=== PATIENT | female | born 2000 | race Caucasian/White ===

== ENCOUNTER 2019-12-14 20:57 | Emergency (ER) | payer MEDICAID, OTHER ==
[~2019-12-14] VITALS: Ht 173 cm; Wt 63.6 kg
[2019-12-14] MEDS ORDERED: ONDANSETRON 4 MG/2 ML (SDV) Z0FRAN IVP ONE (21:00)
[2019-12-14] MEDS ORDERED: LACTATED RINGERS 1,000 ML IV SCH (21:00)
--- NOTE | 2019-12-14 21:05 | ED Neurological Problem ---
General Chief Complaint: Neurological Problems Stated Complaint: SEIZURE Source: patient Exam Limitations: no limitations History of Present Illness Date Seen by Provider: December 14, 2019 Time Seen by Provider: 21:03 Initial Comments to ER for EMS from home with reports of seizure like activity. During one of these episodes EMS was able to give commands and she was able to follow these by squeezing paramedics hands with both of her hands despite generalized myoclonic clonus. No fever no chills. she is 4 days late on her menstrual cycle, has been nauseous for about 3 or 4 days. No history of seizures and is otherwise healthy. She was not incontinent and she has not bitten her tongue. Apparently she's had about 5 or 6 of these episodes today at home. Been under an increased amount of stress lately. Timing/Duration: 24 hours Severity: moderate Allergies and Home Medications Allergies Coded Allergies: No Known Drug Allergies (Unverified , 12/14/19) Home Medications No Active Prescriptions or Reported Meds Patient Home Medication List Home Medication List Reviewed: Yes Review of Systems Review of Systems Constitutional: see HPI Eyes: No Symptoms Reported Ears, Nose, Mouth, Throat: no symptoms reported Respiratory: no symptoms reported Cardiovascular: no symptoms reported Gastrointestinal: nausea, vomiting Genitourinary: no symptoms reported Musculoskeletal: no symptoms reported Skin: no symptoms reported Psychiatric/Neurological: See HPI Endocrine: No Symptoms Reported Hematologic/Lymphatic: No Symptoms Reported Physical Exam Vital Signs Vital Signs - First Documented 12/14/19 20:57 Temp 36.8 Pulse 67 Resp 16 B/P (MAP) 117/90 (99) Pulse Ox 98 O2 Delivery Room Air Capillary Refill : Height, Weight, BMI Height: '" Weight: lbs. oz. kg; BMI Method: General Appearance: WD/WN, no apparent distress HEENT: PERRL/EOMI, normal ENT inspection, TMs normal Neck: non-tender, full range of motion Respiratory: no respiratory distress, no accessory muscle use Cardiovascular: regular rate, rhythm, no murmur Gastrointestinal: normal bowel sounds, non tender, soft Extremities: normal range of motion, non-tender Neurologic/Psychiatric: alert, normal mood/affect, oriented x 3 Crainal Nerves: normal hearing, normal speech, PERRL Skin: normal color, warm/dry Progress/Results/Core Measures Results/Orders Lab Results Laboratory Tests Test 12/14/19 21:00 12/14/19 21:15 Range/Units White Blood Count 9.1 4.3-11.0 10^3/uL Red Blood Count 4.81 4.35-5.85 10^6/uL Hemoglobin 13.8 11.5-16.0 G/DL Hematocrit 39 35-52 % Mean Corpuscular Volume 80 80-99 FL Mean Corpuscular Hemoglobin 29 25-34 PG Mean Corpuscular Hemoglobin Concent 36 32-36 G/DL Red Cell Distribution Width 12.4 10.0-14.5 % Platelet Count 215 130-400 10^3/uL Mean Platelet Volume 12.1 H 7.4-10.4 FL Neutrophils (%) (Auto) 70 42-75 % Lymphocytes (%) (Auto) 20 12-44 % Monocytes (%) (Auto) 10 0-12 % Eosinophils (%) (Auto) 1 0-10 % Basophils (%) (Auto) 0 0-10 % Neutrophils # (Auto) 6.4 1.8-7.8 X 10^3 Lymphocytes # (Auto) 1.8 1.0-4.0 X 10^3 Monocytes # (Auto) 0.9 0.0-1.0 X 10^3 Eosinophils # (Auto) 0.1 0.0-0.3 10^3/uL Basophils # (Auto) 0.0 0.0-0.1 10^3/uL Sodium Level 138 135-145 MMOL/L Potassium Level 3.7 3.6-5.0 MMOL/L Chloride Level 105 98-107 MMOL/L Carbon Dioxide Level 16 L 21-32 MMOL/L Anion Gap 17 H 5-14 MMOL/L Blood Urea Nitrogen 15 7-18 MG/DL Creatinine 0.87 0.60-1.30 MG/DL Estimat Glomerular Filtration Rate > 60 BUN/Creatinine Ratio 17 Glucose Level 112 H 70-105 MG/DL Calcium Level 9.8 8.5-10.1 MG/DL Corrected Calcium 8.5-10.1 MG/DL Total Bilirubin 1.0 0.1-1.0 MG/DL Aspartate Amino Transf (AST/SGOT) 25 5-34 U/L Alanine Aminotransferase (ALT/SGPT) 14 0-55 U/L Alkaline Phosphatase 74 40-136 U/L Myoglobin 46.9 10.0-92.0 NG/ML Total Protein 8.0 6.4-8.2 GM/DL Albumin 4.7 H 3.2-4.5 GM/DL Serum Test, Qualitative NEGATIVE NEGATIVE Urine Color YELLOW Urine Clarity CLOUDY Urine pH 6.0 5-9 Urine Specific [place] 1.025 H 1.016-1.022 Urine Protein 2+ H NEGATIVE Urine Glucose (UA) NEGATIVE NEGATIVE Urine Ketones 1+ H NEGATIVE Urine Nitrite NEGATIVE NEGATIVE Urine Bilirubin 1+ H NEGATIVE Urine Urobilinogen 2.0 < = 1.0 MG/DL Urine Leukocyte Esterase 3+ H NEGATIVE Urine RBC (Auto) NEGATIVE NEGATIVE Urine RBC NONE /HPF Urine WBC 5-10 H /HPF Urine Squamous Epithelial Cells 2-5 /HPF Urine Crystals NONE /LPF Urine Bacteria MODERATE H /HPF Urine Casts NONE /LPF Urine Mucus SMALL H /LPF Urine Culture Indicated YES Urine Opiates Screen NEGATIVE NEGATIVE Urine Oxycodone Screen NEGATIVE NEGATIVE Urine Methadone Screen NEGATIVE NEGATIVE Urine Propoxyphene Screen NEGATIVE NEGATIVE Urine Barbiturates Screen NEGATIVE NEGATIVE Ur Tricyclic Antidepressants Screen NEGATIVE NEGATIVE Urine Phencyclidine Screen NEGATIVE NEGATIVE Urine Amphetamines Screen NEGATIVE NEGATIVE Urine Methamphetamines Screen NEGATIVE NEGATIVE Urine Benzodiazepines Screen NEGATIVE NEGATIVE Urine Cocaine Screen NEGATIVE NEGATIVE Urine Cannabinoids Screen POSITIVE H NEGATIVE My Orders Orders - JOSEPH CASTRO APRN Cbc With Automated Diff (12/14/19 20:59) Comprehensive Metabolic Panel (12/14/19 20:59) Hcg,Qualitative Serum (12/14/19 20:59) Ua Culture If Indicated (12/14/19 20:59) Myoglobin Serum (12/14/19 20:59) Ed Iv/Invasive Line Start (12/14/19 20:59) Lactated Ringers (Lr 1000 Ml Iv Solution (12/14/19 21:00) Ondansetron Injection (Zofran Injectio (12/14/19 21:00) Drug Screen Stat (Urine) (12/14/19 20:59) Ct Head Wo (12/14/19 20:59) Lorazepam Injection (Ativan Injection) (12/14/19 21:30) Urine Culture (12/14/19 21:15) Rx-Lorazepam (Rx-Ativan) (12/14/19 22:03) Rx-Ondansetron Po (Rx-Zofran Po) (12/14/19 22:03) Ceftriaxone For Iv Use (Rocephin For I (12/14/19 22:15) Medications Given in ED Current Medications Medications Dose Ordered Sig/Laureano Route Start Time Stop Time Status Last Admin Dose Admin Lorazepam 0.5 mg ONCE PRN IVP 12/14/19 21:30 12/14/19 21:28 0.5 MG Ondansetron HCl 8 mg ONCE ONCE IVP 12/14/19 21:00 12/14/19 21:01 DC 12/14/19 21:03 8 MG Vital Signs/I&O 12/14/19 20:57 Temp 36.8 Pulse 67 Resp 16 B/P (MAP) 117/90 (99) Pulse Ox 98 O2 Delivery Room Air Departure Impression Primary Impression: Convulsions Qualified Codes: R56.9 - Unspecified convulsions Additional Impressions: Nausea & vomiting Urinary tract infection Disposition: HOME, SELF-CARE Condition: Stable Departure-Patient Inst. Decision time for Depature: 22:07 Patient Instructions: Nausea and Vomiting, Adult (DC), Stress, Urinary Tract Infection, Adult (DC) Add. Discharge Instructions: 1. Use the lorazepam and agree 6-8 hours as needed for stress and anxiety. Take the antibiotics as directed. Use the nausea medication as needed. Follow-up with your doctor next week for recheck. Your test was negative All discharge instructions reviewed with patient and/or family. Voiced understanding. Scripts Cefuroxime Axetil (Cefuroxime) 250 Mg Tablet 250 MG PO BID, #10 TAB Prov: JOSEPH CASTRO APRN 12/14/19 JOSEPH CASTRO APRN December 14, 2019 21:05
[2019-12-14 21:08] LABS: BASOPHILS % (AUTO) 0 % (0-10); EOSINOPHILS # (AUTO) 0.1 10^3/uL (0.0-0.3); EOSINOPHILS % (AUTO) 1 % (0-10); HEMATOCRIT 39 % (35-52); HEMOGLOBIN 13.8 G/DL (11.5-16.0); LYMPHOCYTES # (AUTO) 1.8 X 10^3 (1.0-4.0); LYMPHOCYTES % (AUTO) 20 % (12-44); MEAN CORPUSCULAR HEMOGLOBIN 29 PG (25-34); MEAN CORPUSCULAR HGB CONC 36 G/DL (32-36); MEAN CORPUSCULAR VOLUME 80 FL (80-99); MEAN PLATELET VOLUME 12.1 FL (7.4-10.4); MONOCYTES # (AUTO) 0.9 X 10^3 (0.0-1.0); MONOCYTES % (AUTO) 10 % (0-12); NEUTROPHILS # (AUTO) 6.4 X 10^3 (1.8-7.8); NEUTROPHILS % (AUTO) 70 % (42-75); PLATELET COUNT 215 10^3/uL (130-400); RED CELL DISTRIBUTION WIDTH 12.4 % (10.0-14.5); WHITE BLOOD COUNT 9.1 10^3/uL (4.3-11.0)
--- OUTSIDE RECORDS SUMMARY | 2019-12-14 21:08 | XMS REPORT | Continuity of Care Document ---
Author Organization Unknown Address Unknown Phone Unavailable Allergies Active Description Code Type Severity Reaction Onset Reported/Identified Relationship to Patient Clinical Status Yes Penicillins Penicillins Drug Allergy Unknown HIVES 08/28/2018 Medications There is no data. Problems Date Dx Coded Attending Type Code Diagnosis Diagnosed By 04/08/2015 GRACE LEACH 110.5 DERMATOPHYTOSIS OF THE BODY 04/08/2015 GRACE LEACH 307.81 TENSION HEADACHE 04/08/2015 GRACE LEACH 922.1 CONTUSION OF CHEST WALL 10/10/2015 PASCUAL MARROQUIN R10.9 Unspecified abdominal pain 10/10/2015 PASCUAL MARROQUIN R11.0 Nausea 10/10/2015 PASCUAL MARROQUIN R10.9 Unspecified abdominal pain 10/10/2015 PASCUAL MARROQUIN R53.83 Other fatigue 04/11/2016 MARIA GUADALUPE ELENA O26.892 Other specified related conditions, second trimester 04/13/2016 GRACE LEACH Z32.01 Encounter for test, result positive 04/14/2016 GRACE LEACH Z34.02 Encounter for supervision of normal first , second trimester 04/14/2016 GRACE LEACH Z36 Encounter for screening of mother 04/16/2016 GRACE LEACH O23.592 Infection of other part of genital tract in , second trimester 04/16/2016 GRACE LEACH Z3A.15 15 weeks gestation of 04/16/2016 GRACE LEACH N76.0 Acute vaginitis 04/16/2016 GRACE LEACH Z34.92 Encounter for supervision of normal , unspecified, second trimester 05/06/2016 GRACE LEACH B96.89 Other specified bacterial agents as the cause of diseases classified elsewhere 05/06/2016 GRACE LEACH J32.9 Chronic sinusitis, unspecified 05/06/2016 GRACE LEACH J40 Bronchitis, not specified as acute or chronic 05/06/2016 GRACE LEACH Z33.1 state, incidental 05/15/2016 VIJAY MOTT O26.892 Other specified related conditions, second trimester 05/15/2016 VIJAY MOTT R10.9 Unspecified abdominal pain 05/15/2016 VIJAY MOTT W19.XXXA Unspecified fall, initial encounter 05/15/2016 VIJAY MOTT Z3A.19 19 weeks gestation of 05/25/2016 GRACE LEACH Z34.02 Encounter for supervision of normal first , second trimester 05/25/2016 GRACE LEACH Z3A.20 20 weeks gestation of 08/15/2017 W 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, bilateral 08/15/2017 W 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, bilateral 08/15/2017 W R51 Headache 08/15/2017 W 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, bilateral 08/15/2017 W R51 Headache 08/23/2017 W 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, bilateral 08/23/2017 W R51 Headache 08/23/2017 W 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, bilateral 08/23/2017 W R51 Headache 08/23/2017 W 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, bilateral 08/23/2017 W R51 Headache 08/23/2017 W 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, bilateral 08/23/2017 W R51 Headache 08/23/2017 W 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, bilateral 08/23/2017 W R51 Headache 09/02/2017 W 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, bilateral 09/02/2017 W R51 Headache 09/02/2017 W 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, bilateral 09/02/2017 W R51 Headache 09/02/2017 W 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, bilateral 09/02/2017 W R51 Headache 09/05/2017 W 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, bilateral 09/05/2017 W R51 Headache 09/05/2017 W 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, bilateral 09/05/2017 W R51 Headache 09/05/2017 W 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, bilateral 09/05/2017 W R51 Headache 10/10/2018 MARY HENRY F17.20 0 Nicotine dependence, unspecified, uncomplicated 10/10/2018 MARY HENRY Mariam P N39.0 Urinary tract infection, site not specified 10/10/2018 MARY HENRY Mariam A R50.9 Fever, unspecified 12/27/2018 W 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, bilateral 12/28/2018 W 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, bilateral 03/16/2019 SANJAY ROJAS F N91 .2 Amenorrhea, unspecified 06/20/2019 MANDEEP ENG S63.501A Unspecified sprain of right wrist, initial encounter 06/20/2019 MANDEEP ENG W17.89XA Other fall from one level to another, initial encounter 06/20/2019 MANDEEP ENG Y92.[address] in unspecified non-institutional (private) residence as the place of occurrence of the external cause Procedures Code Description [place] [address] EYE EXAM, NEW PATIENT 08/15/2017 73553 REFR ACTION 08/15/2017 V2020 Visi on svcs frames purchases 08/15/2017 V2100 Lens spher single plano 4.00 08/15/2017 V2782 Lens , 1.54-1.65 p/1.60-1.79g 08/15/2017 VNOPP No P rotection Plan 08/15/2017 21728 EYE EXAM T TREATMENT 12/26/2018 87637 REFR ACTION 12/26/2018 V2020 Visi on svcs frames purchases 12/26/2018 V2100 Lens spher single plano 4.00 12/26/2018 V2782 Lens , 1.54-1.65 p/1.60-1.79g 12/26/2018 Results Test Result Range URINALYSIS, ROUTINE - 08/28/18 00:00 UA LEUKOCYTE ESTERASE DIPSTICK 2+ NEGATIVE UA NITRITE DIPSTICK NEGATIVE NEGATIVE UA PROTEIN DIPSTICK NEGATIVE NEGATIVE UA GLUCOSE DIPSTICK NEGATIVE NEGATIVE UA KETONE DIPSTICK NEGATIVE NEGATIVE UA UROBILINOGEN DIPSTICK NORMAL IVELISSE L UA BILIRUBIN DIPSTICK NEGATIVE NEGATIVE UA BLOOD DIPSTICK NEGATIVE NEGATIVE UA SPECIFIC GRAVITY 1.021 1.015-1.02 5 UR PH 7.0 5.0-7.0 UA MICROSCOPIC - 08/28/18 00:00 UA BACTERIA 4+ NEGATIVE UA EPITHELIAL CELLS 3+ epi/hpf 0 - 1+ UA RBC 0-3 rbc/hpf 0 - 3 UA VOLUME FOR EXAM 12.0 mL (12mL STD) UA WBC 10-20 wbc/hpf 0 - 5 URINE CULTURE - 08/28/18 00:00 Microbiology UR TEST - 08/28/18 19:44 UR TEST NEGATIVE NEGATIVE 10 MINUTE STREP ID - 10/10/18 18:09 10 MINUTE STREP ID LAB 10 MIN STREP NEGATIVE NORMAL = NEGATIVE INFLUENZA RAPID [facility] - 10/10/18 18:09 INFLUENZA A & B PCR, [facility] LAB INFLUENZA A NOT DETEC NORMAL: NOT DETEC SHELLY INFLUENZA B NOT DETEC NORMAL: NOT DETEC SHELLY [facility] - 10/10/18 18:16 U NEGATIVE URINALYSIS - 10/10/18 18:16 URINALYSIS LAB Color YELLOW Character CLEAR GLUCOSE NEGATIVE Bilirubin NEGATIVE Ketones NEGATIVE Sp [place] 1.017 Ph 6.0 Protein NEGATIVE Urobilinogen NEGATIVE Nitrite NEGATIVE Blood NEGATIVE Leukocytes 2+ Microscopic See Below Bacteria RARE WBC/ 6-10 RBC/ 0-2 Squa Epi Cell 3-5 Mucous RARE Culture To Follow CHLAMYDIA/GC URINE OR PROBETEC - 9 18:16 Chlamydia trachomatis,JEFF Positive Nega tive Neisseria gonorrhoeae,JEFF Negative Nega tive Radiology Report [place] [facility] [place]28/19 19 20:35:00 PATIENT NAME: BOBBY PARDO UNIT NO: [id number] EXAMS: CPT CODE: [id number] XR CHEST AP/PA ONLY [id number] TIME OF STUDY: 08/28/2018 8:05 PM REASON FOR EXAM: RIB PAIN COMPARISON: None. FINDINGS: Single frontal view of the chest was obtained. Lung volume is normal. No pulmonary mass or consolidation is present. No pleural effusion or pneumothorax. The cardiomediastinal silhouette and the pulmonary vascularity are within normal limits. No acute osseous abnormality. IMPRESSION: 1. No acute cardiopulmonary process. I have personally reviewed these images and confirmed or corrected the resident physician's interpretation. at 2028 RESIDENT: STEVEN FLORES MD Reported and signed by: CARLA MURILLO MD CC: TECHNOLOGIST: KIRAN NICHOLAS; NISSA MOTA TRANSCRIBED DATE/Time: 08/28/20182028 BY: [email or web address] EXAM COMPLETE DATE/TIME: [id number] D/TM:08/28/2018 (2034) [facility] NAME: BOBBY PARDO [address] HP: [phone] AGE: 18 S:F [place] [id number] : 2000 LOC: [facility] PHYS: Gumaro Pascual Antoni URIEL PHONE #: [phone] EXAM DATE: 08/28/2018 STATUS: REG ER FAX #: [phone] A#: [id number] U#: [id number] PAGE 1 Signed Report *Final Page* Encounters ACCT No. Visit Date/Time Discharge Status Pt. Type Provider Facility Loc./Unit Complaint [id number] 10/10/2018 17:47:00 10/10/2018 19:17 :00 DIS Emergency MARY HENRY L [id number] 06/19/2019 23:24:00 06/20/2019 00:55 :00 DIS Emergency MANDEEP ENG [facility] ED [id number] 03/16/2019 15:45:00 03/16/2019 19:45 :00 DIS Outpatient SANJAY ROJAS [id number] 03/16/2019 14:45:00 03/16/2019 18:45 :00 DIS Outpatient SANJAY ROJAS [facility] [place] [id number] 05/25/2016 09:30:00 05/25/2016 13:30 :00 DIS RB GRACE LEACH [facility] CL [id number] 05/21/2016 09:03:00 05/21/2016 13:03 :00 DIS OP GRACE LEACH [facility] OT [id number] 05/15/2016 15:25:00 05/15/2016 15:58 :00 DIS ED VIJAY MOTT [facility] ED [id number] 05/06/2016 14:30:00 05/06/2016 18:30 :00 DIS GRACE THAPA [facility] CL [id number] 04/16/2016 15:29:00 04/16/2016 19:29 :00 DIS OP GRACE LEACH [facility] OT [id number] 04/16/2016 14:45:00 04/16/2016 18:45 :00 DIS RB GRACE LEACH [facility] CL [id number] 04/14/2016 08:00:00 04/14/2016 12:00 :00 DIS OP GRACE LEACH [id number] 04/13/2016 16:00:00 04/13/2016 20:00 :00 DIS GRACE THAPA [facility] CL [id number] 04/11/2016 18:06:00 04/11/2016 [facility]00 :[id number]/10[facility]2015 10:11:00 10/10/2015 14:11 :[address] [facility] OT [id number] 10/10/2015 10:00:00 10/10/2015 14:00 :00 [id number] 04/08/2015 15:45:00 04/08/2015 19:45 :00 DIS GRACE THAPA [facility] CL [id number] 08/28/2018 18:58:00 21:51:00 DIS Emergency Triny [facility] [id number] 12/26/2018 14:20:00 Document Registration [id number] 12/26/2018 00:00:00 Document Registration [id number] 08/15/2017 09:45:00 Document Registration [id number] 08/15/2017 00:00:00 Document Registration [id number] 10/10/2018 17:47:00 Document Registration
[2019-12-14 21:16] LABS: ALBUMIN 4.7 GM/DL (3.2-4.5); CHLORIDE 105 MMOL/L (98-107)
[2019-12-14 21:17] LABS: POTASSIUM 3.7 MMOL/L (3.6-5.0); SODIUM 138 MMOL/L (135-145)
[2019-12-14 21:18] LABS: CALCIUM 9.8 MG/DL (8.5-10.1)
[2019-12-14 21:19] LABS: GLUCOSE 112 MG/DL (70-105)
[2019-12-14 21:20] LABS: CLARITY,URINE CLOUDY; COLOR,URINE YELLOW; GLUCOSE, URINE (UA) NEGATIVE (NEGATIVE); KETONES,URINE 1+ (NEGATIVE); LEUKOCYTE ESTERASE ,URINE 3+ (NEGATIVE); NITRITE,URINE NEGATIVE (NEGATIVE); PROTEIN,URINE 2+ (NEGATIVE)
[2019-12-14 21:20] LABS: CARBON DIOXIDE 16 MMOL/L (21-32)
[2019-12-14 21:22] LABS: ALKALINE PHOSPHATASE 74 U/L (40-136); CREATININE SERUM 0.87 MG/DL (0.60-1.30); GFR ESTIMATED > 60
[2019-12-14 21:24] LABS: BUN/CREATININE RATIO 17
[2019-12-14 21:25] LABS: ALANINE AMINOTRANSFERASE 14 U/L (0-55)
[2019-12-14 21:28] LABS: BILIRUBIN,URINE 1+ (NEGATIVE)
[2019-12-14 21:30] LABS: BACTERIA,URINE MODERATE /HPF
[2019-12-14] MEDS ORDERED: LORazepam INJ 2 MG/ML (ATIVAN) VIAL IVP PRN (21:30)
[2019-12-14 21:31] LABS: AMPHETAMINE SCREEN, URINE NEGATIVE (NEGATIVE); BARBITURATE SCREEN URINE NEGATIVE (NEGATIVE); BENZODIAZEPINES SCREEN URINE NEGATIVE (NEGATIVE); CANNABINOID SCREEN, URINE POSITIVE (NEGATIVE); COCAINE SCREEN URINE NEGATIVE (NEGATIVE); METHAMPHETAMINE SCREEN URINE S NEGATIVE (NEGATIVE); OPIATE SCREEN URINE NEGATIVE (NEGATIVE); TRICYCLIC ANTIDEPRESSANTS SCRE NEGATIVE (NEGATIVE)
[2019-12-14 21:32] LABS: METHADONE STAT NEGATIVE (NEGATIVE); OXYCODONE STAT NEGATIVE (NEGATIVE); PROPOXYPHENE STAT NEGATIVE (NEGATIVE)
--- NOTE | 2019-12-14 21:58 | Diagnostic Imaging Report ---
PROCEDURE: CT head without contrast. TECHNIQUE: Multiple contiguous axial images were obtained through the brain without the use of intravenous contrast. Auto Exposure Controls were utilized during the CT exam to meet ALARA standards for radiation dose reduction. INDICATION: Seizure-like activity. FINDINGS: There is no hemorrhage. Likely prominent Virchow-Dean space in the right basal ganglia is noted as a presumed chronic finding. No mass or mass effect. No evidence for elevated intracranial pressures. There is no sulcal effacement. The cortical alexis-white matter differentiation is maintained. The ventricles are within the upper limits of normal for caliber. There is no periventricular edema. IMPRESSION: No hemorrhage or acute appearing abnormality. Dictated by: Dictated on workstation # [id number]
[2019-12-14] MEDS ORDERED: RX-LORAZEPAM (ATIVAN) 0.5 MG TAB PPK#4 PO STA (22:03)
[2019-12-14] MEDS ORDERED: RX-ONDANSETRON 4 MG ODT (ZOFRAN) PPK #4 PO STA (22:03)
[2019-12-14] MEDS ORDERED: CEFU250T80 PO (22:11)
[2019-12-14] MEDS ORDERED: cefTRIAXone FOR IV USE 1,000 MG in WATER (STERILE) FOR INJECTION 10 ML IV ONE (22:15)
[2019-12-14 22:26] VITALS: BP 121/95
== END 2019-12-14 22:28 | disposition home or self-care (01) ==
LOC: ER 20:58
DX: R56.9 Unspecified convulsions (principal); N39.0 Urinary tract infection, site not specified
CPT/HCPCS: 36415; 70450; 80053; 80306; 81000; 83874; 84703; 85025; 87088